=== PATIENT | male | born 1955 | race Caucasian/White ===

== ENCOUNTER 2017-08-26 17:04 | Inpatient (IN) | payer OTHER, MEDICARE ==
[~2017-08-26] VITALS: Ht 177.8 cm; Wt 58.2 kg
[2017-08-26 19:37] LABS: ABSOLUTE BASOPHIL COUNT 0 /CUMM (0.0-0.2); ABSOLUTE EOSINOPHIL COUNT 0 /CUMM (0.0-0.7); ABSOLUTE GRANULOCYTE CT 7.3 /CUMM (1.4-6.5); ABSOLUTE LYMPH COUNT 1.4 /CUMM (1.2-3.4); ABSOLUTE MONOCYTE COUNT 0.6 /CUMM (0.10-0.60); BASOPHIL % 0.2 % (0.0-2.0); EOSINOPHIL % 0.3 % (0-5); GRANULOCYTE % 78.7 % (42.2-75.2); HEMATOCRIT 42.5 % (42-52); MEAN CORPUSCULAR HGB 29.2 PG (27.0-31.0); MEAN CORPUSCULAR HGB CONC 31.6 G/DL (33.0-37.0); MEAN CORPUSCULAR VOLUME 92.3 FL (80.0-94.0); MEAN PLATELET VOLUME 9.1 FL (7.4-10.4); PLATELET COUNT 84 /CUMM (130-400); RED BLOOD CELL CT 4.61 /CUMM (4.70-6.10); WHITE BLOOD CELL COUNT 9.3 /CUMM (4.8-10.8)
--- NOTE | 2017-08-26 21:11 | ED GENERAL ADULT ---
History of Present Illness General Chief Complaint: Lower Extremity Problems Stated Complaint: PER DAUGHTER SWOLLEN LEGS Source: patient Exam Limitations: no limitations Vital Signs & Intake/Output Vital Signs & Intake/Output Vital Signs Date Time Temp Pulse Resp B/P B/P Pulse O2 O2 Flow FiO2 Mean Ox Delivery Rate 08/26 2241 97.0 72 16 146/87 96 Room Air 08/26 1906 96.8 85 20 143/87 95 Room Air Allergies Coded Allergies: NO KNOWN ALLERGIES (08/13/13) Triage Note: RECEIVED 62 YO MALE WITH DAUGHTER C/O PITTING LOWER EXTREMITY EDEMA X 2 TO 3 DAYS. ACCORDING TO DAUGHTER, PT TOOK EXTRA GABAPENTIN LAST SATURDAY AND SLEPT FOR 2 DAYS. PT DELEVOPED LOWER EXTREMITY EDEMA ON SATURDAY WHEN HE TOOK THE GABAPENTIN. SORES NOTED ON LOWER EXTREMITIES WITH PITTING EDEMA Triage Nurses Notes Reviewed? yes Onset: Abrupt Duration: day(s): Timing: recent history HPI: 08/26/17 9:32 PM 62-year-old male presents to the emergency department with daughter for significant swelling to his lower extremities over the past several days. He did take extra gabapentin accidentally. He is also a smoker and does admit to shortness of breath but denies chest pain. The onset of the symptoms were gradual, the duration has been several days, the severity is significant as his symptoms required him to come to the emergency department for care. He has a past medical history of COPD. Exam reveals significant edema to the lower extremities. He has poor air entry on exam. He is a poor historian and minimizes his complaints. Past History Travel History Traveled to [place] past 21 day No Medical History Any Pertinent Medical History? see below for history Neurological: NONE EENT: NONE Cardiovascular: NONE Respiratory: COPD Gastrointestinal: NONE Hepatic: NONE Renal: NONE Musculoskeletal: NONE Psychiatric: NONE Endocrine: NONE History of MRSA: No History of VRE: No History of CDIFF: No Surgical History Surgical History: non-contributory Psychosocial History Who do you live with Spouse Services at Home None What is your primary language Sudanese Tobacco Use: Current Daily Use Daily Tobacco Use Amount/Type: => 5 Cigarettes daily Family History Family History, If Any: FATHER (LUNG CANCER). MOTHER (POOR CIRCULATION, PVD). Hx Contributory? No Review of Systems Review of Systems Constitutional: Denies: fever. EENTM: Reports: no symptoms. Respiratory: Reports: short of breath. Cardiovascular: Denies: chest pain. GI: Reports: no symptoms. Genitourinary: Reports: no symptoms. Musculoskeletal: Reports: no symptoms. Skin: Reports: see HPI. Neurological/Psychological: Reports: no symptoms. Hematologic/Endocrine: Reports: no symptoms. Physical Exam Physical Exam General Appearance: alert, awake, anxious, mild distress Head: atraumatic, normal appearance Eyes: Bilateral: normal appearance, PERRL, EOMI. Ears, Nose, Throat: normal pharynx, normal ENT inspection Neck: normal inspection, supple, full range of motion Respiratory: normal breath sounds, decreased breath sounds, poor air entry Cardiovascular: regular rate/rhythm Peripheral Pulses: 4+ radial (R), 4+ radial (L) Gastrointestinal: soft, non-tender Back: normal range of motion Extremities: pedal edema Neurologic/Psych: awake, alert, oriented x 3 Skin: intact, ulcer LLE Core Measures ACS in differential dx? Yes No ASA d/t GIVEN CVA/TIA Diagnosis: No Sepsis Present: No Sepsis Focused Exam Completed? No Progress Differential Diagnoses I considered the following diagnoses in my evaluation of the patient: [Acute coronary syndrome, congestive heart failure, pulmonary embolism, adverse reaction to gabapentin] Plan of Care: Orders Procedure Date/time Status Heart Healthy Diet 08/27 B Active ED Holding Orders 08/26 2299 Active Admit to inpatient 08/26 2299 Active Vital Signs 08/26 2299 Active Code Status 08/26 2299 Active Add-on Test (ER Only) 08/26 2136 Active EKG 08/26 2136 Active TROPONIN LEVEL 08/26 1924 Complete D-DIMER 08/26 1924 Complete COMPREHENSIVE METABOLIC PANEL 08/26 1809 Complete CBC WITHOUT DIFFERENTIAL 08/26 1809 Complete B-TYPE NATRIURETIC PEP (BNP) 08/26 181 Complete Laboratory Tests 08/26/171924: Anion Gap 7, Estimated GFR > 60, BUN/Creatinine Ratio 15.7, Glucose 82, Calcium 7.8 L, Total Bilirubin 1.1, AST 28, ALT 223 H, Alkaline Phosphatase 69, Troponin I 0.06, Hlv-K-Ygfqhsgbylt Pept 2670 H, Total Protein 5.7 L, Albumin 3.1 L, Globulin 2.6, Albumin/Globulin Ratio 1.2, D-Dimer High Sensitivty 608 H , CBC w Diff NO MAN DIFF REQ, RBC 4.61 L, MCV 92.3, MCH 29.2, MCHC 31.6 L, RDW 17.0 H, MPV 9.1, Gran % 78.7 H, Lymphocytes % 14.9 L, Monocytes % 5.9, Eosinophils % 0.3, Basophils % 0.2, Absolute Granulocytes 7.3 H, Absolute Lymphocytes 1.4, Absolute Monocytes 0.6, Absolute Eosinophils 0, Absolute Basophils 0 Initial ED EKG: NSR, NEW T WAVE INVERSIONS V2-V3 Prior EKG: changed Departure Departure Disposition: STILL A PATIENT Condition: Stable Clinical Impression Primary Impression: Acute electrocardiogram changes Secondary Impressions: Anasarca, CHF (congestive heart failure), Hypocalcemia Referrals: Gardenia Freed APRN (PCP/Family) Departure Forms: Customer Survey General Discharge Information Admission Note Sp[facility]: [facility] Documentation of Exam: Documentation of any treatments & extenuating circumstances including Concerns Regarding Discharge (functional status, medication knowledge or non-compliance, living conditions, etc.) that warrant an admission rather than observation: [The patient has acute EKG changes and substantial lower extremity edema. He needs cardiology consultation, inpatient echocardiogram, CTA to rule out pulmonary embolism] Critical Care Note Critical Care Note Critical Care Time: non-applicable
--- NOTE | 2017-08-26 22:10 | RADIOLOGY REPORT ---
EXAMINATION: CHEST 2 VIEWS CLINICAL INFORMATION: Shortness of breath. COMPARISON: July 2013. TECHNIQUE: PA and lateral views of the chest were obtained. FINDINGS: The cardiac silhouette is not enlarged. The mediastinal and hilar contours are unremarkable. There are neither pleural effusions nor pneumothoraces. There is accentuation of streaky opacification within both lung apices, increased from prior exam. The lungs are hyperinflated. The osseous structures are unremarkable. IMPRESSION: Lung hyperinflation. Streaky biapical opacification likely business services sales representative of scarring, though an underlying infiltrate is difficult to exclude, particularly on the right. Recommendation is for a followup chest series to be obtained following treatment and/or resolution of symptoms to assure resolution of this appearance.
--- NOTE | 2017-08-27 00:09 | CT SCAN REPORT ---
EXAMINATION: CT ANGIOGRAM OF THE CHEST WITH AND WITHOUT CONTRAST (CT PULMONARY ANGIOGRAM FOR PE) CLINICAL INFORMATION: Shortness of breath, elevated d-dimer COMPARISON: Chest x-ray from earlier today TECHNIQUE: Prior to contrast administration, noncontrast localization images were obtained. Subsequently, multidetector volumetric imaging was performed from the thoracic inlet to below the diaphragms following the administration of 80 mL Omnipaque 350 intravenous contrast. No contrast reaction reported. Sagittal, coronal, and MIP oblique sagittal reformatted images were obtained on the CT workstation, uploaded to PACS, and reviewed. Total exam dose-length product 453.85 mGy-cm. FINDINGS: QUALITY OF STUDY/CONTRAST BOLUS: Satisfactory PULMONARY ARTERIES: No central or segmental pulmonary emboli. The main pulmonary artery is mildly prominent, measuring 3.1 cm in diameter. THORACIC AORTA: Grossly unremarkable, though suboptimally evaluated given the phase of postcontrast imaging LUNG: There is moderately extensive emphysema with upper lobe predominance, including multiple bullae at the lung apices. There are regions of subpleural opacity at the lung apices which are most suggestive of scarring in the setting. No additional consolidation is seen bilaterally. There is a nodule along the right minor fissure measuring 8 x 4 mm on image 333/601, suggestive of a lymph node. PLEURA: No pleural effusion or pneumothorax. MEDIASTINUM: The visualized thyroid gland appears diminutive. No mediastinal lymphadenopathy is seen. Cardiac size is within normal limits; no pericardial effusion. The interventricular septum appears somewhat flattened, with prominent size of the right ventricular cavity. CHEST WALL/AXILLA: No axillary or internal mammary lymphadenopathy. OSSEOUS STRUCTURES: There is partial loss of height in multiple vertebral bodies including T4, T5, T7, L1, and L3 which is age-indeterminate. UPPER ABDOMEN: There is some reflux of contrast into the hepatic veins suggesting elevated right heart pressures. IMPRESSION: 1. No pulmonary embolus identified. 2. Findings suggestive of elevated right heart pressures. Prominent main pulmonary artery may reflect pulmonary hypertension. 3. Moderately extensive emphysema with upper lobe predominance. 4. Regions of subpleural opacity at the lung apices, suggestive of scarring. However, in the absence of prior CT exams for comparison, follow-up CT in 3-6 months is advised to exclude superimposed developing mass. VTE: negative
--- NOTE | 2017-08-27 00:10 | History & Physical ---
Becky UJLIO,Eileen 08/27/17 0009: General Information and HPI MD Statement: I have seen and personally examined SISSY PERALES and documented this H&P. The patient is a 62 year old M who presented with a patient stated chief complaint of failure to thrive. . Source of Information: patient, family, old records Exam Limitations: no limitations History of Present Illness: Mr Perales is a 62 year old gentleman with a PMH of COPD (not on home O2), BPH, Depression, chronic back painwho was brought in by daughter after it appears the patient has clinically deteriorated over the last 72 hours. The patient was in his normal state of health until Saturday08/23/2017, When he mistakenly took some pills of gabapentin. He is unsure how many. He was previously prescribed gabapentin (however was instructed to stop taking them) these medications were supposed to be discarded but never were. Daughter of the patient reported that the patient was somnolent and slept during the entire course of Saturday into Saturday. She states that patient has remained somnolent and had to be carried into bed on Saturday. It was recommended that the patient should be brought into the emergency department on Saturday for additional workup however patient refused. On 08/26/2017 the patient was scheduled to have a routine visit with primary care physician Dr. Gardenia Freed however missed this appointment. During the time of our clinical interation, the patient reports that as he was attempting to use the restroom on Saturday he suffered a mechanical fall and did have some head trauma. He however denies any LOC. Patient also endorses worsening dyspnea on exertion. He endorses paroxysmal nocturnal dyspnea and requires 5 pillows to sleep at night. He also endorses a cough which is increased over the last 72 hours. Cough is been productive of yellow phlegm. He reports an increase in the production and worsening of his pulmonay symptoms. Patient has been due for colonoscopy however has not followed up. . Allergies/Medications Allergies: Coded Allergies: NO KNOWN ALLERGIES (08/13/13) Home Med list Alprazolam (Xanax) 2 MG TABLET 1 TAB PO ONCE MOOD (Reported) Dextroamphetamine/Amphetamine (Dextroamp-Amphet ER 30 MG Cap) 30 MG CAP.ER.24H 1 CAP PO DAILY Mood Disorder (Reported) Oxycodone HCl (Oxycontin) 60 MG TAB.ER.12H 1 TAB PO BID Chronic Pain ( Reported) Oxycodone HCl 30 MG TABLET 1 TAB PO TIDPRN Chronic Pain (Reported) Sertraline HCl 100 MG TABLET 1 TAB PO DAILY MOOD DISORDER (Reported) Tamsulosin HCl (Flomax) 0.4 MG CAP.ER.24H 1 CAP PO DAILY prostate (Reported) Tiotropium [place] (Spiriva) 18 MCG CAP.W.DEV 1 CAP INH DAILY COPD (Reported) Trazodone HCl 50 MG TABLET 1 TAB PO QPM PRN SLEEP (Reported) Compliance With Home Meds: UNKNOWN Past History Travel History Traveled to [place] past 21 day No Medical History Neurological: NONE EENT: NONE Cardiovascular: NONE Respiratory: COPD Gastrointestinal: NONE Hepatic: NONE Renal: NONE Musculoskeletal: NONE Psychiatric: NONE Endocrine: NONE History of MRSA: No History of VRE: No History of CDIFF: No Surgical History Surgical History: non-contributory Past Family/Social History Family History Relations & Conditions if any FATHER (LUNG CANCER). MOTHER (POOR CIRCULATION, PVD). Psychosocial History Where do you live? Home Who Do You Live With? spouse, child Services at Home: None Primary Language: Polish Smoking Status: Current Everyday Smoker (Over 30 Pack year history) ETOH Use: occasional use Illicit Drug Use: denies illicit drug use Living Will? no Functional Ability ADLs Independent: dressing, eating, toileting, bathing. Ambulation: independent IADLs Independent: shopping, housework, finances, food prep, telephone, transportation , medication admin. Review of Systems Review of Systems Constitutional: Reports: see HPI. Denies: chills, diaphoresis, fever, malaise, weakness. Respiratory: Reports: cough, orthopnea, short of breath, sputum production. Denies: hemoptysis, stridor. GI: Denies: abdominal pain, bloating, constipation, diarrhea, distention, bowel incontinence, melena, nausea, bloody stool. Genitourinary: Denies: discharge, dysuria, frequency, hematuria. Musculoskeletal: Reports: back pain. Exam & Diagnostic Data Last 24 Hrs of Vital Signs/I&O Vital Signs Date Time Temp Pulse Resp B/P B/P Pulse O2 O2 Flow FiO2 Mean Ox Delivery Rate 08/27 0205 97.8 86 14 157/91 97 Room Air 08/26 2241 97.0 72 16 146/87 96 Room Air 08/26 1906 96.8 85 20 143/87 95 Room Air Intake & Output 08/27 0800 08/27 0000 08/26 1600 Intake Total Output Total 400 Balance -400 Output, Urine 400 Patient 61.235 kg Weight Weight Estimated Measurement Method Physical Exam General Appearance Alert, Oriented X3, Cooperative Skin Temp/Moisture Exam: Warm/Dry Sepsis Skin Exam (color): Normal for Ethnicity HEENT Atraumatic, PERRLA, EOMI, Mucous Membr. moist/pink Neck Supple Lymphatic Cervical nl Cardiovascular Regular Rate, Normal S1, Normal S2 Lungs decreased Breathsounds. Mild Wheezing noted. R>L Abdomen Normal Bowel Sounds, Soft, No Tenderness Neurological Normal Speech, Sensation Intact, Cranial Nerves 3-12 NL, Strength Upper EXT 5/5 Strenght Lower Ext 3/5 Extremities No Clubbing Vascular Normal Pulses Sepsis Peripheral Pulse Location: Posterior Tibialis Last 24 Hrs of Labs/Ryan: Laboratory Tests 08/27/17 0208: Urine Opiates Screen 1078.00, Methadone Screen < 40, Barbiturate Screen < 60, Ur Phencyclidine Scrn < 6.00, Amphetamines Screen < 100, U Benzodiazepines Scrn > 800 H, Urine Cocaine Screen < 50, Urine Cannabis Screen < 5.00, Urine Color YEL , Urine Clarity CLEAR, Urine pH 7.0, Ur Specific [place] 1.010, Urine Protein NEG, Urine Ketones NEG, Urine Nitrite NEG, Urine Bilirubin NEG, Urine Urobilinogen 1.0, Ur Leukocyte Esterase NEG, Ur Microscopic EXAM NOT REQUIRED, Urine Hemoglobin NEG, Urine Glucose NEG 08/27/17 0123: Troponin I 0.07 08/26/17 1925: Anion Gap 7, Estimated GFR > 60, BUN/Creatinine Ratio 15.7, Glucose 82, Calcium 7.8 L, Total Bilirubin 1.1, AST 28, ALT 223 H, Alkaline Phosphatase 69, Troponin I 0.06, Lvw-O-Rodpylkodxu Pept 2670 H, Total Protein 5.7 L, Albumin 3.1 L, Globulin 2.6, Albumin/Globulin Ratio 1.2, D-Dimer High Sensitivty 608 H , CBC w Diff NO MAN DIFF REQ, RBC 4.61 L, MCV 92.3, MCH 29.2, MCHC 31.6 L, RDW 17.0 H, MPV 9.1, Gran % 78.7 H, Lymphocytes % 14.9 L, Monocytes % 5.9, Eosinophils % 0.3, Basophils % 0.2, Absolute Granulocytes 7.3 H, Absolute Lymphocytes 1.4, Absolute Monocytes 0.6, Absolute Eosinophils 0, Absolute Basophils 0 Diagnostic Data EKG Results T wave inversions, V2, V3, V4. Rate 78. QTC 456. SC 220. First deg AV Block. CXR Results IMPRESSION: Lung hyperinflation. Streaky biapical opacification likely patient representative of scarring, though an underlying infiltrate is difficult to exclude, particularly on the right. Recommendation is for a followup chest series to be obtained following treatment and/or resolution of symptoms to assure resolution of this appearance. Other Results SERVICE DATE: 08/26/17 EXAM TYPE: CAT - CTA CHEST-PULMONARY EMBOLISM IMPRESSION: 1. No pulmonary embolus identified. 2. Findings suggestive of elevated right heart pressures. Prominent main pulmonary artery may reflect pulmonary hypertension. 3. Moderately extensive emphysema with upper lobe predominance. 4. Regions of subpleural opacity at the lung apices, suggestive of scarring. However, in the absence of prior CT exams for comparison, follow-up CT in 3-6 months is advised to exclude superimposed developing mass. VTE: negative Assessment/Plan Assessment: Mr Perales is a 62 year old gentleman with a PMH of COPD (not on home O2), BPH, Depression, chronic back painwho was brought in by daughter after it appears the patient has clinically deteriorated over the last 72 hours. His symptoms seem to have been caused by COPD exacerbation and possibly component of CHF exacerbation. He continues to smoke and will likely benefit from smoking cessation therapy. Below is his problem list and management. Problem list. #Altered mentation due to decreased PO intake vs medication side effect. #COPD exacerbation. #EKG Changes #Elevated ProBNP #Transaminitis. #Idiopathic Thrombocytopenia #History of nicotine dependence. #History of depression and mood disorder. #History of low testosterone. #Nutritional deficiency. #EKG Changes. Rule out ACS. Serial EKGs and troponin. Obtain echocardiogram in a.m. Cardiology consultation in a.m. Obtain thyroid studies. Conitinue Aspirin. #COPD exacerbation. Continue steroids IV 40 mg every 8. TRC nebulizer. Continue Spiriva. Obtain a pulmonary consultation with Dr. Duron in the a.m. Incentive spirometer. Mucinex and Tessalon Perles as needed. Continue Azithromycing for antiinflamatory infection and cover atypical organisms. #CHF exacerbation. Lasix IV 20 mg was given in the emergency department Monitor daily weights. Monitor intake and output. Continue Lasix 20 mg PO in a.m. Obtain cardiology consultation with Dr. Felix in a.m. #History of nicotine dependence. Provide Smoking cessation counseling. Nicotine patch. Will need age-appropriate cancer screening as an outpatient. #Idiopathic thrombocytopenia. Check coag studies in a.m. Repeat CBC in AM. Hold pharmacologic nticoagulation for now. History of depression and mood disorders. Continue home medications. Nutritional deficiencies. Patient does look slightly malnutrition and may benefit from a nutrition consult in a.m. #History of chronic pain Continue home medications. PT and OT consultation in am. Consider nutrition consult in a.m. *Please reconcile home medications in a.m. Patient was unsure of his complete medication list.* Heart healthy diet. Limit sodium. DVT prophylaxis with ALPS (due to thrombocytopenia) . Patient is a full code. As Ranked By This Provider Problem List: 1. CHF (congestive heart failure) 2. Chronic back pain 3. Depression 4. COPD exacerbation Core Measures/Misc (03/31) Cerebrovascular Accident CVA/TIA Diagnosis: Gissell Castelan MD, [facility] 08/27/17 0021: Attending MD Review Statement Attending Statement Attending MD Statement: examined this patient, discuss w/resident/PA/NAVAL GUNFIRE SPOTTER, agreed w/resident/PA/NAVAL GUNFIRE SPOTTER, discussed with family, reviewed images, amended to note Attending Assessment/Plan: 62 yo M smoker with h/o COPD, depression, BPH, chronic back pain on opiates, low testosterone, neuropathy, COPD induced cachexia, is here for evaluation of bilateral lower extremity edema and general decline in clinical condition. Patient was previously on gabapentin for neuropathy but this was switched to ? trazodone per patient's . However on Saturday, patient took few pills of gabapentin and since then he has been somnolent/ sleepy. He refused to come to the ER for evaluation over the weekend. He reports a mechanical fall at home that resulted in mild head strike but no LOC. He reports worsening dyspnea on exertion with orthopnea (uses 5 pillows at night ), PND and increasing cough productive of initially white and now yellow phlegm, especially worse over past 3 days. He denies chest pain, palpitations or lightheadedness. History is very limited as patient's daughter is not aware of his medical problems and was giving us some information although things were not clear. Med list was not available. Patient is on hydrocortisone (per claim history) and it is unclear why. He reports weight loss though cannot quantify. Vitals stable except for elevated BP. Examination suggestive of markedly reduced air entry and expiratory wheezes on exam, bilateral lower extremity 3+ pitting edema, no evidence of JVD or chest crackles. Easy bruising++. Labs: no leukocytosis, Plt 84, D-dimer 608, bicarb 35, Ca 7.8, albumin 3.1, corrected calcium 8.5, ALT 223, trop neg, proBNP 2670. UA clear. Utox positive for opiates and benzos. CXR: lung hyperinflation. Streaky biapical opacification likely scarring, though underlying infiltrate cannot be excluded. CTA chest: no PE. Elevated right heart pressures, prominent main pulmonary artery, moderately extensive emphysema, subpleural opacity at lung apices scarring. EKG: sinus rhythm, TWI in V2-4, first degree AV block, Qtc 456. Echo (2013): EF > 65%. Assessment and plan: 1. Lethargy, weakness likely drug induced (?gabapentin, opiates) 2. Acute EKG changes 3. Acute COPD exacerbation 4. Ongoing smoking 5. Bilateral lower extremity edema, elevated proBNP, rule out CHF 6. Pulmonary hypertension 7. Thrombocytopenia of unclear etiology - Admit to Telemetry - Monitor for arrhythmias - Serial EKG and troponin to rule out ACS - Obtain echo to assess LV function and pulmonary pressures - Continue aspirin - Check lipid panel, TSH, free T4, HbA1c - Cardio consult Dr. Felix - IV lasix 20 mg once then followed 20 daily in AM - TR nebs - Sputum cultures - IV steroids 125 mg followed by 40 Q8 - IV azithro for 5 days - Pulm consult Dr. Duron - Smoking cessation counseling, nicotine patch - Check peripheral smear, PT/ INR - He needs to follow up with PCP for colonoscopy. - Please confirm med list in AM and obtain more collateral information about this patient - Nutrition consult - Local wound care to bilateral extremities - PT eval DVT ppx Alps (thrombocytopenia). Full code.
--- NOTE | 2017-08-27 00:22 | Admission Certification ---
Admission Certification Certification Statement - As attending physician, I certify that at the time of - admission, based on clinical presentation, severity of - symptoms, need for further diagnostic testing and - therapeutic interventions, and risk of adverse outcomes - without in-hospital treatment, in my clinical assessment, - this patient requires an acute hospital stay for a minimum - of two nights or longer. I have also considered psychsocial - factors such as support system, advanced age, financial - issues, cognitive issues, and failed out-patient treatments, - past re-admission history, safety of patient, and lack of - compliance as applicable. Specific rationale supporting this admission is: Acute COPD exacerbation, Pulmonary hypertension, lower extremity edema, concerning for CHF.
[2017-08-27] MEDS ORDERED: TRAZODONE HCL50 M1 PO (02:10)
[2017-08-27] MEDS ORDERED: XANAX2 M1 PO (02:11)
[2017-08-27] MEDS ORDERED: SERTRALINE HCL100 MG PO (02:11)
[2017-08-27] MEDS ORDERED: FLOMAX0.4 M1 PO (03:18)
[2017-08-27] MEDS ORDERED: OXYCONTIN60 M1 PO (03:19)
[2017-08-27] MEDS ORDERED: SPIRIVA18 MCG INH (03:20)
[2017-08-27] MEDS ORDERED: OXYCODONE HCL30 M1 PO (03:20)
[2017-08-27] MEDS ORDERED: DEXTROAMP-AMPHE30 M1 PO (03:21)
[2017-08-27 08:27] LABS: PTT 31 SEC (25-37)
[2017-08-27 08:45] LABS: ABSOLUTE BASOPHIL COUNT 0 /CUMM (0.0-0.2); ABSOLUTE EOSINOPHIL COUNT 0 /CUMM (0.0-0.7); ABSOLUTE GRANULOCYTE CT 6.4 /CUMM (1.4-6.5); ABSOLUTE LYMPH COUNT 0.5 /CUMM (1.2-3.4); ABSOLUTE MONOCYTE COUNT 0.1 /CUMM (0.10-0.60); BASOPHIL % 0 % (0.0-2.0); EOSINOPHIL % 0 % (0-5); GRANULOCYTE % 92.1 % (42.2-75.2); HEMATOCRIT 45.4 % (42-52); MEAN CORPUSCULAR HGB 29.4 PG (27.0-31.0); MEAN CORPUSCULAR VOLUME 92.1 FL (80.0-94.0); MEAN PLATELET VOLUME 9.8 FL (7.4-10.4); PLATELET COUNT 81 /CUMM (130-400); RBC DISTRIBUTION WIDTH 16.6 % (11.5-14.5); RED BLOOD CELL CT 4.93 /CUMM (4.70-6.10)
--- NOTE | 2017-08-27 09:47 | PN- Housestaff ---
Kiko JULIO,[facility] 08/27/17 0946: Subjective Follow-up For: CHF Exacerbation COPD Exacerbation Subjective: Patient more awake per the family. Denies any chest pain, palpitation, fever/ chills. Review of Systems Constitutional: Reports: no symptoms. Cardiovascular: Denies: chest pain, palpitations. Respiratory: Reports: cough, orthopnea, short of breath, sputum production. Gastrointestinal: Reports: no symptoms. Genitourinary: Reports: no symptoms. Objective Last 24 Hrs of Vital Signs/I&O Vital Signs Date Time Temp Pulse Resp B/P B/P Pulse O2 O2 Flow FiO2 Mean Ox Delivery Rate 08/27 1804 98.0 78 20 136/70 91 08/27 1531 97.5 84 18 124/81 93 Room Air Room Air 08/27 0949 97.2 77 20 154/89 08/27 0809 97.2 77 20 154/89 95 Room Air 08/27 0619 97.5 79 18 170/99 93 Room Air 08/27 0205 97.8 86 14 157/91 97 Room Air 08/26 2241 97.0 72 16 146/87 96 Room Air Intake & Output 08/27 1600 08/27 0800 08/27 0000 Intake Total Output Total 700 Balance -700 Output, Urine 700 Patient 135 lb 135 lb Weight Weight Reported by Patient Estimated Measurement Method Physical Exam General Appearance: Alert, Cooperative, No Acute Distress Skin: No Rashes, No Breakdown Cardiovascular: Regular Rate, Normal S1, Normal S2 Lungs: Normal Air Movement Extremities: +2 pitting edema bilaterally Current Medications: Current Medications Sig/Cristina Start time Last Medication Dose Route Stop Time Status Admin Alprazolam 0 .STK-MED ONE 08/27 1532 DC PO Alprazolam 0.5 MG DAILY PRN 08/27 1445 AC 08/27 PO 09/03 1444 1531 Alprazolam 2 MG ONCE ONE 08/27 0215 DC 08/27 PO 08/27 0216 0239 Aspirin 0 .STK-MED ONE 08/26 2327 DC PO Aspirin 325 MG ONCE ONE 08/26 2315 DC 08/26 PO 08/26 2316 2345 Azithromycin 500 MG DAILY 08/28 1000 AC PO Azithromycin 500 MG DAILY 08/27 1000 CAN Dextrose/Water 250 ML IV Azithromycin 500 MG DAILY 08/27 1000 DC 08/27 Dextrose/Water 250 ML IV 0949 Enoxaparin Sodium 40 MG DAILY 08/27 1000 CAN SC Furosemide 0 .STK-MED ONE 08/27 1459 DC IV Furosemide 20 MG ONCE ONE 08/27 1445 DC 08/27 IV 08/27 1446 1458 Furosemide 0 .STK-MED ONE 08/27 0205 DC IV Furosemide 20 MG ONCE ONE 08/27 0115 DC 08/27 IV 08/27 0116 0205 Guaifenesin 600 MG Q12 PRN 08/27 0330 AC PO Influenza Virus 0.5 ML ONCE ONE 08/27 1845 DC Vaccine IM 08/27 1846 Methylprednisolone 40 MG Q12 08/27 1000 DC IV Methylprednisolone 40 MG Q8 08/27 0600 AC 08/27 IV 1425 Methylprednisolone 0 .STK-MED ONE 08/27 0112 DC .ROUTE Methylprednisolone 125 MG ONCE ONE 08/27 0100 DC 08/27 IV 08/27 0101 0129 Multivitamins 1 TAB DAILY 08/27 1000 AC 08/27 PO 0949 Nicotine 0 .STK-MED ONE 08/26 2238 DC TOP Nicotine 21 MG ONCE ONE 08/26 2230 DC 08/26 TOP 08/26 2231 2240 Oxycodone HCl 60 MG Q12 08/27 1000 AC 08/27 PO 0949 Oxycodone HCl 0 .STK-MED ONE 08/27 0947 DC PO Oxycodone HCl 30 MG TIDPRN PRN 08/27 0330 AC PO Sertraline HCl 100 MG DAILY 08/27 1000 AC 08/27 PO 0949 Tamsulosin HCl 0.4 MG DAILY 08/27 1000 AC 08/27 PO 0949 Tiotropium [place] 1 PUF DAILY 08/27 1000 AC 08/27 INH 0949 Trazodone HCl 50 MG QPM PRN 08/27 0215 AC 08/27 PO 0239 Last 24 Hrs of Lab/Ryan Results Last 24 Hrs of Labs/Mics: Laboratory Tests 08/27/17 0648: Anion Gap 6, Estimated GFR > 60, BUN/Creatinine Ratio 21.7, Total Bilirubin 1.1, Direct Bilirubin 0.4, AST 32, ALT 186 H, Alkaline Phosphatase 75, Troponin I 0.06, Total Protein 5.6 L, Albumin 2.9 L, PT 14.0 H, INR 1.34 H, APTT 31, CBC w Diff MAN DIFF ORDERED, RBC 4.93, MCV 92.1, MCH 29.4, MCHC 32.0 L, RDW 16.6 H, MPV 9.8, Gran % 92.1 H, Lymphocytes % 6.7 L, Monocytes % 1.2 L, Eosinophils % 0, Basophils % 0, Absolute Granulocytes 6.4, Segmented Neutrophils 89 H, Band Neutrophils 1, Absolute Lymphocytes 0.5 L, Lymphocytes 9 L, Monocytes 1 L, Absolute Monocytes 0.1, Absolute Eosinophils 0, Absolute Basophils 0, Platelet Estimate , Anisocytosis 1+ 08/27/17 0208: Urine Opiates Screen 1078.00, Methadone Screen < 40, Barbiturate Screen < 60, Ur Phencyclidine Scrn < 6.00, Amphetamines Screen < 100, U Benzodiazepines Scrn > 800 H, Urine Cocaine Screen < 50, Urine Cannabis Screen < 5.00, Urine Color YEL , Urine Clarity CLEAR, Urine pH 7.0, Ur Specific [place] 1.010, Urine Protein NEG, Urine Ketones NEG, Urine Nitrite NEG, Urine Bilirubin NEG, Urine Urobilinogen 1.0, Ur Leukocyte Esterase NEG, Ur Microscopic EXAM NOT REQUIRED, Urine Hemoglobin NEG, Urine Glucose NEG 08/27/17 0123: Troponin I 0.07 Microbiology 08/27 1643 NASOPHARYN: Influenza Virus A & B Rapid Smear - COMP 08/27 814 LOWER RESP: Respiratory Culture - COLB 08/27 814 LOWER RESP: Gram Stain - COLB Assessment/Plan Assessment: Mr Shen is a 62 year old gentleman with a PMH of COPD (not on home O2), BPH, Depression, chronic back painwho was brought in by daughter after it appears the patient has clinically deteriorated over the last 72 hours. A/P; SOB likely multifactorial from CHF and COPD exacerbation. #COPD exacerbation. Continue steroids IV 40 mg every 8. [facility] nebulizer. Continue Spiriva. Await pulmonology recommendations. Incentive spirometer. Mucinex and Tessalon Perles as needed. Continue Azithromycing. #CHF exacerbation. Lasix IV 20 mg was given in the emergency department. Will give another dose today and reaccess tomorrow morning for further need of diuresis. Monitor daily weights. Strick intake and output. Await cardiology recommendations. #History of nicotine dependence. Provide Smoking cessation counseling. Nicotine patch. Will need age-appropriate cancer screening as an outpatient. #Idiopathic thrombocytopenia. Coags WNL. Repeat CBC in AM. Hold pharmacologic nticoagulation for now. Spoke with PCP who denies any previous episodes of thrombocytopenia and any workup for it in the past. Will check peripheral smear. Haem/Onc consult; await recommendations. History of depression and mood disorders. Continue home medications. Nutritional deficiencies. Patient does look slightly malnutrition and may benefit from a nutrition consult in a.m. #History of chronic pain Continue home medications. PT and OT consultation, recommends discharging home. DVT prophylaxis with ALPS (due to thrombocytopenia) . Patient is a full code. Problem List: 1. CHF (congestive heart failure) 2. COPD exacerbation Pain Ratin Pain Location: Back Pain Goal: Remain pain free Pain Plan: Pain pathway Tomorrow's Labs & Rationales: BEP(on Lasix) Niharika Donahue MD 08/27/17 1442: Attending MD Review Statement Attending Statement Attending MD Statement: examined this patient, discuss w/resident/PA/YEAST CULTURE DEVELOPER, agreed w/resident/PA/YEAST CULTURE DEVELOPER, reviewed EMR data (avail), discussed with nursing, reviewed images Attending Assessment/Plan: 62-year-old male past medical history of COPD, BPH, emphysema who came in last night and we are empirically treating him both for a COPD exacerbation with IV steroids and a possible CHF exacerbation with IV Lasix. We need to get more collateral info from the patient, Dr. Felix is scheduled to see him from cardiology. He has severe emphysema on his CT scan and will continue the steroids and do the Lasixdaily as needed. He is Lasix selene and doesn't take it chronically. He has this new thrombocytopenia of unclear etiology and the risk management internship spoke to the PCP and he doesn't have a history of having this before. We will ask the lab to do peripheral smear, his coags are normal not reflective of DIC and will likely need hematology to help us get to the bottom of this thrombocytopenia. There is no obvious medication that could cause it. He is chronically opiate dependent and would continue his OxyContin. He also take benzos and will give him that when necessary watching his respiratory status closely.
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
--- NOTE | 2017-08-27 18:03 | Event Note ---
Event Note Event Note: S: Paged stating patient's daughter concerned and thinks patient needs a head CT B: Patient is a 62 y/o male with PMH Patient seen and examined. Neurologically intact.
[2017-08-27 18:04] VITALS: BP 136/70
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
--- NOTE | 2017-08-27 21:05 | CT SCAN REPORT ---
EXAMINATION: CT HEAD WITHOUT CONTRAST CLINICAL INFORMATION: 62-year-old man with recent fall and confusion. COMPARISON: 04/19/2017 brain MRI TECHNIQUE: Contiguous axial imaging was performed from the skull base to vertex without intravenous administration of contrast. DLP: 617 mGy-cm FINDINGS: Chronic changes related to left frontal craniotomy and cranioplasty are again visible with cystic encephalomalacia and gliosis in the left middle frontal gyrus. No intracranial mass, hemorrhage, midline shift, or extra-axial collection is appreciated. The ventricles and sulcal spaces are age appropriate. The paranasal sinuses are well aerated. IMPRESSION: No acute intracranial pathology.
[2017-08-27 22:12] VITALS: BP 124/70
[2017-08-28 04:34] LABS: ABSOLUTE BASOPHIL COUNT 0 /CUMM (0.0-0.2); ABSOLUTE EOSINOPHIL COUNT 0 /CUMM (0.0-0.7); ABSOLUTE GRANULOCYTE CT 11.4 /CUMM (1.4-6.5); ABSOLUTE LYMPH COUNT 0.7 /CUMM (1.2-3.4); ABSOLUTE MONOCYTE COUNT 0.3 /CUMM (0.10-0.60); BASOPHIL % 0.1 % (0.0-2.0); EOSINOPHIL % 0 % (0-5); HEMATOCRIT 42.5 % (42-52); MEAN CORPUSCULAR HGB 29.2 PG (27.0-31.0); MEAN CORPUSCULAR HGB CONC 32.5 G/DL (33.0-37.0); MEAN CORPUSCULAR VOLUME 89.7 FL (80.0-94.0); MEAN PLATELET VOLUME 9.3 FL (7.4-10.4); PLATELET COUNT 101 /CUMM (130-400); RBC DISTRIBUTION WIDTH 16.5 % (11.5-14.5); RED BLOOD CELL CT 4.74 /CUMM (4.70-6.10)
[2017-08-28 05:35] LABS: GRANULOCYTE % 92.3 % (42.2-75.2)
[2017-08-28 06:43] VITALS: BP 140/82
--- NOTE | 2017-08-28 07:11 | Cons- Hematology ---
General Information and HPI Consulting Request Date of Consult: 08/28/17 Requested By: Rowan JULIO,Niharika Corado History of Present Illness: 62-year-old man brought to the emergency room with increasing lethargy found to be thrombocytopenic. Prior to admission, the patient ingested gabapentin. He denies increased bleeding or bruising. Allergies/Medications Allergies: Coded Allergies: NO KNOWN ALLERGIES (08/13/13) Home Med List: Alprazolam (Xanax) 2 MG TABLET 1 TAB PO ONCE MOOD (Reported) Dextroamphetamine/Amphetamine (Dextroamp-Amphet ER 30 MG Cap) 30 MG CAP.ER.24H 1 CAP PO DAILY Mood Disorder (Reported) Oxycodone HCl (Oxycontin) 60 MG TAB.ER.12H 1 TAB PO BID Chronic Pain ( Reported) Oxycodone HCl 30 MG TABLET 1 TAB PO TIDPRN Chronic Pain (Reported) Sertraline HCl 100 MG TABLET 1 TAB PO DAILY MOOD DISORDER (Reported) Tamsulosin HCl (Flomax) 0.4 MG CAP.ER.24H 1 CAP PO DAILY prostate (Reported) Tiotropium [place] (Spiriva) 18 MCG CAP.W.DEV 1 CAP INH DAILY COPD (Reported) Trazodone HCl 50 MG TABLET 1 TAB PO QPM PRN SLEEP (Reported) Current Medications: Current Medications Sig/Cristina Start time Last Medication Dose Route Stop Time Status Admin Albuterol Sulfate 3 ML BID 08/27 2200 AC INH Alprazolam 0 .STK-MED ONE 08/27 1532 DC PO Alprazolam 0.5 MG DAILY PRN 08/27 1445 AC 08/27 PO 09/03 1444 2241 Azithromycin 500 MG DAILY 08/28 1000 AC PO Azithromycin 500 MG DAILY 08/27 1000 CAN Dextrose/Water 250 ML IV Azithromycin 500 MG DAILY 08/27 1000 DC 08/27 Dextrose/Water 250 ML IV 0949 Enoxaparin Sodium 40 MG DAILY 08/27 1000 CAN SC Furosemide 0 .STK-MED ONE 08/27 1459 DC IV Furosemide 20 MG ONCE ONE 08/27 1445 DC 08/27 IV 08/27 1446 1458 Guaifenesin 600 MG Q12 PRN 08/27 0330 AC PO Influenza Virus 0.5 ML ONCE ONE 08/27 1845 DC Vaccine IM 08/27 1846 Methylprednisolone 40 MG Q12 08/28 1000 AC IV Methylprednisolone 40 MG Q8 08/27 0600 DC 08/27 IV 2131 Multivitamins 1 TAB DAILY 08/27 1000 AC 08/27 PO 0949 Oxycodone HCl 60 MG Q12 08/27 1000 AC 08/27 PO 2132 Oxycodone HCl 0 .STK-MED ONE 08/27 0947 DC PO Oxycodone HCl 30 MG TIDPRN PRN 08/27 0330 AC PO Potassium Chloride 10 MEQ ONCE ONE 08/28 0330 CAN IV 08/28 0331 Potassium Chloride 40 MEQ ONCE ONE 08/28 0330 DC 08/28 PO 08/28 0331 0356 Sertraline HCl 100 MG DAILY 08/27 1000 AC 08/27 PO 0949 Tamsulosin HCl 0.4 MG DAILY 08/27 1000 AC 08/27 PO 0949 Tiotropium [place] 1 PUF DAILY 08/27 1000 DC 08/27 INH 0949 Trazodone HCl 50 MG QPM PRN 08/27 0215 AC 08/28 PO 0412 Review of Systems Review of Systems: Patient denies headaches or dizziness. Patient has chronic shortness of breath not associated with hemoptysis or chest pain. Patient denied nausea vomiting abdominal pain or blood loss. 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 MOTHER (POOR CIRCULATION, PVD). Psychosocial History Where Do You Live? Home Who Do You Live With? spouse, child Services at Home: None Primary Language: Kenyan Smoking Status: Current Everyday Smoker (Over 30 Pack year history) ETOH Use: occasional use Illicit Drug Use: denies illicit drug use Living Will? no Functional Ability ADLs Independent: dressing, eating, toileting, bathing. Ambulation: independent IADLs Independent: shopping, housework, finances, food prep, telephone, transportation , medication admin. Exam & Diagnostic Data Vital Signs and I&O Vital Signs Date Time Temp Pulse Resp B/P B/P Pulse O2 O2 Flow FiO2 Mean Ox Delivery Rate 08/28 0543 98.1 92 20 140/82 92 Room Air 08/28 0000 91 Nasal 2.5L Cannula 08/27 2212 98.0 84 18 124/70 94 08/27 2150 Nasal 2.0L Cannula 08/27 1804 98.0 78 20 136/70 91 08/27 1531 97.5 84 18 124/81 93 Room Air Room Air 08/27 0949 97.2 77 20 154/89 08/27 0809 97.2 77 20 154/89 95 Room Air Intake & Output 08/28 0800 08/28 0000 08/27 1600 Intake Total 110 320 Output Total 900 600 Balance -790 -280 Intake, IV 10 Intake, Oral 100 320 Output, Urine 900 600 Patient 133 lb 135 lb Weight Weight Bed scale Reported by Patient Measurement Method Gen.: in NAD ENT: Sclera anicteric Chest: Normal respiratory effort, decreased breath sounds Cor: RRR, no extra sounds Abdomen: Soft, bowel sounds present, no tenderness, no rebound Extremities: Without clubbing, cyanosis, or asymmetric edema Neurology: Alert and oriented 3, no gross deficit Skin: No petechiae Last 48 Hours of Lab Results: Laboratory Tests 08/28 08/28 08/27 0600 0407 2120 Chemistry Sodium (137 - 145 mmol/L) Cancelled 137 131 L Potassium (3.5 - 5.1 mmol/L) Cancelled 3.4 L 3.6 Chloride (98 - 107 mmol/L) Cancelled 98 91 L Carbon Dioxide (22 - 30 mmol/L) Cancelled 32 H 34 H Anion Gap (5 - 16) Cancelled 7 6 BUN (9 - 20 mg/dL) Cancelled 20 21 H Creatinine (0.7 - 1.2 mg/dL) Cancelled 0.6 L 0.8 Estimated GFR (>60 ml/min) > 60 > 60 BUN/Creatinine Ratio (7 - 25 %) Cancelled 33.3 H 26.3 H Hematology CBC w Diff NO MAN DIFF REQ WBC (4.8 - 10.8 /CUMM) 12.4 H RBC (4.70 - 6.10 /CUMM) 4.74 Hgb (14.0 - 18.0 G/DL) 13.9 L Hct (42 - 52 %) 42.5 MCV (80.0 - 94.0 FL) 89.7 MCH (27.0 - 31.0 PG) 29.2 MCHC (33.0 - 37.0 G/DL) 32.5 L RDW (11.5 - 14.5 %) 16.5 H Plt Count (130 - 400 /CUMM) 101 L MPV (7.4 - 10.4 FL) 9.3 Gran % (42.2 - 75.2 %) 92.3 H Lymphocytes % (20.5 - 51.1 %) 5.3 L Monocytes % (1.7 - 9.3 %) 2.3 Eosinophils % (0 - 5 %) 0 Basophils % (0.0 - 2.0 %) 0.1 Absolute Granulocytes (1.4 - 6.5 /CUMM) 11.4 H Absolute Lymphocytes (1.2 - 3.4 /CUMM) 0.7 L Absolute Monocytes (0.10 - 0.60 /CUMM) 0.3 Absolute Eosinophils (0.0 - 0.7 /CUMM) 0 Absolute Basophils (0.0 - 0.2 /CUMM) 0 08/27 08/27 0648 0208 Chemistry Sodium (137 - 145 mmol/L) 140 Potassium (3.5 - 5.1 mmol/L) 3.6 Chloride (98 - 107 mmol/L) 101 Carbon Dioxide (22 - 30 mmol/L) 33 H Anion Gap (5 - 16) 6 BUN (9 - 20 mg/dL) 13 Creatinine (0.7 - 1.2 mg/dL) 0.6 L Estimated GFR (>60 ml/min) > 60 BUN/Creatinine Ratio (7 - 25 %) 21.7 Total Bilirubin (0.2 - 1.3 mg/dL) 1.1 Direct Bilirubin (< 0.4 mg/dL) 0.4 AST (17 - 59 U/L) 32 ALT (21 - 72 U/L) 186 H Alkaline Phosphatase (< 127 U/L) 75 Troponin I (<0.11 ng/ml) 0.06 Total Protein (6.3 - 8.2 g/dL) 5.6 L Albumin (3.5 - 5.0 g/dL) 2.9 L Coagulation PT (9.4 - 12.5 SEC) 14.0 H INR (0.90 - 1.17) 1.34 H APTT (25 - 37 SEC) 31 Hematology CBC w Diff MAN DIFF ORDERED WBC (4.8 - 10.8 /CUMM) 7.0 RBC (4.70 - 6.10 /CUMM) 4.93 Hgb (14.0 - 18.0 G/DL) 14.5 Hct (42 - 52 %) 45.4 MCV (80.0 - 94.0 FL) 92.1 MCH (27.0 - 31.0 PG) 29.4 MCHC (33.0 - 37.0 G/DL) 32.0 L RDW (11.5 - 14.5 %) 16.6 H Plt Count (130 - 400 /CUMM) 81 L MPV (7.4 - 10.4 FL) 9.8 Gran % (42.2 - 75.2 %) 92.1 H Lymphocytes % (20.5 - 51.1 %) 6.7 L Monocytes % (1.7 - 9.3 %) 1.2 L Eosinophils % (0 - 5 %) 0 Basophils % (0.0 - 2.0 %) 0 Absolute Granulocytes (1.4 - 6.5 /CUMM) 6.4 Segmented Neutrophils (42.2 - 75.2 %) 89 H Band Neutrophils (0.0 - 5.0 %) 1 Absolute Lymphocytes (1.2 - 3.4 /CUMM) 0.5 L Lymphocytes (20.5 - 51.1 %) 9 L Monocytes (1.7 - 9.3 %) 1 L Absolute Monocytes (0.10 - 0.60 /CUMM) 0.1 Absolute Eosinophils (0.0 - 0.7 /CUMM) 0 Absolute Basophils (0.0 - 0.2 /CUMM) 0 Platelet Estimate (ADEQUATE) Anisocytosis 1+ Toxicology Urine Opiates Screen (>2000 NG/ML) 1078.00 Methadone Screen (>300 NG/ML) < 40 Barbiturate Screen (>200 NG/ML) < 60 Ur Phencyclidine Scrn (>25 NG/ML) < 6.00 Amphetamines Screen (>1000 NG/ML) < 100 U Benzodiazepines Scrn (>200 NG/ML) > 800 H Urine Cocaine Screen (>300 NG/ML) < 50 Urine Cannabis Screen (>50 NG/ML) < 5.00 Urines Urine Color (YEL,AMB,STR) YEL Urine Clarity (CLEAR) CLEAR Urine pH (5.0 - 8.0) 7.0 Ur Specific [place] (1.001 - 1.035) 1.010 Urine Protein (NEG,<30 MG/DL) NEG Urine Ketones (NEG) NEG Urine Nitrite (NEG) NEG Urine Bilirubin (NEG) NEG Urine Urobilinogen (0.1 - 1.0 EU/dl) 1.0 Ur Leukocyte Esterase (NEG) NEG Ur Microscopic EXAM NOT REQUIRED Urine Hemoglobin (NEG) NEG Urine Glucose (N MG/DL) NEG 08/27 08/26 0123 1925 Chemistry Sodium (137 - 145 mmol/L) 137 Potassium (3.5 - 5.1 mmol/L) 4.1 Chloride (98 - 107 mmol/L) 95 L Carbon Dioxide (22 - 30 mmol/L) 35 H Anion Gap (5 - 16) 7 BUN (9 - 20 mg/dL) 11 Creatinine (0.7 - 1.2 mg/dL) 0.7 Estimated GFR (>60 ml/min) > 60 BUN/Creatinine Ratio (7 - 25 %) 15.7 Glucose (65 - 99 mg/dL) 82 Hemoglobin A1c (4.2 - 5.8 %) 6.1 H Calcium (8.4 - 10.2 mg/dL) 7.8 L Total Bilirubin (0.2 - 1.3 mg/dL) 1.1 AST (17 - 59 U/L) 28 ALT (21 - 72 U/L) 223 H Alkaline Phosphatase (< 127 U/L) 69 Troponin I (<0.11 ng/ml) 0.07 0.06 Wnt-O-Tkidlvbivpm Pept (<125 pg/mL) 2670 H Total Protein (6.3 - 8.2 g/dL) 5.7 L Albumin (3.5 - 5.0 g/dL) 3.1 L Globulin (1.9 - 4.2 gm/dL) 2.6 Albumin/Globulin Ratio (1.1 - 2.2 %) 1.2 Triglycerides (<150 mg/dL) 55 Cholesterol (< 200 MG/DL) 80 LDL Cholesterol, Calc (65 - 129 mg/dL) 34 L HDL Cholesterol (40 - 60 mg/dL) 35 L Cholesterol/HDL Ratio (0.00 - 4.88 %) 2 TSH (0.270 - 4.200 uIU/mL) 1.400 Free T4 (0.78 - 2.44 ng/dL) 1.09 Coagulation D-Dimer High Sensitivty (0 - 243 ng/ml) 608 H Hematology CBC w Diff NO MAN DIFF REQ WBC (4.8 - 10.8 /CUMM) 9.3 RBC (4.70 - 6.10 /CUMM) 4.61 L Hgb (14.0 - 18.0 G/DL) 13.5 L Hct (42 - 52 %) 42.5 MCV (80.0 - 94.0 FL) 92.3 MCH (27.0 - 31.0 PG) 29.2 MCHC (33.0 - 37.0 G/DL) 31.6 L RDW (11.5 - 14.5 %) 17.0 H Plt Count (130 - 400 /CUMM) 84 L MPV (7.4 - 10.4 FL) 9.1 Gran % (42.2 - 75.2 %) 78.7 H Lymphocytes % (20.5 - 51.1 %) 14.9 L Monocytes % (1.7 - 9.3 %) 5.9 Eosinophils % (0 - 5 %) 0.3 Basophils % (0.0 - 2.0 %) 0.2 Absolute Granulocytes (1.4 - 6.5 /CUMM) 7.3 H Absolute Lymphocytes (1.2 - 3.4 /CUMM) 1.4 Absolute Monocytes (0.10 - 0.60 /CUMM) 0.6 Absolute Eosinophils (0.0 - 0.7 /CUMM) 0 Absolute Basophils (0.0 - 0.2 /CUMM) 0 2014: ZARI, rheumatoid factor-negative, serum protein electrophoresis-normal Careful review of the [facility] records, patient has never been thrombocytopenic before Imaging/Other Studies: [id number] pulmonary emboli, COPD, scarring CT-head-no IV contrast-negative Assessment/Plan Assessment: Thrombocytopenia-now spontaneously improving. Gabapentin has really been associated with thrombocytopenia.? Patient ingested other medication. Given improvement- Recommend- Follow CBC Recommendations: .. Consult Acknowledgment - Thank you for your consult request.
--- NOTE | 2017-08-28 07:41 | PN- Housestaff ---
Kiko JULIO,[facility] 08/28/17 0741: Subjective Follow-up For: COPD Exacerbation CHF ??? Tele-Events Since Last Visit: Sinus rhythm to sinus tachycardia Heart rate 80-104 Subjective: Patient denies any chest pain, palpitations, shortness of breath, leg swelling or fever/chills. Ports improvement in cough and sputum production. Review of Systems Constitutional: Reports: no symptoms. EENTM: Reports: no symptoms. Cardiovascular: Reports: no symptoms. Respiratory: Reports: cough, sputum production. Gastrointestinal: Reports: no symptoms. Genitourinary: Reports: no symptoms. Musculoskeletal: Reports: no symptoms. Skin: Reports: no symptoms. Neurological/Psychological: Reports: no symptoms. Hematologic/Endocrine: Reports: no symptoms. Immunologic/Allergic: Reports: no symptoms. Objective Last 24 Hrs of Vital Signs/I&O Vital Signs Date Time Temp Pulse Resp B/P B/P Pulse O2 O2 Flow FiO2 Mean Ox Delivery Rate 08/28 0937 126/68 08/28 0856 94 Room Air 08/28 0643 98.1 92 20 140/82 92 Room Air 08/28 0000 91 Nasal 2.5L Cannula 08/27 2212 98.0 84 18 124/70 94 08/27 2150 Nasal 2.0L Cannula 08/27 1804 98.0 78 20 136/70 91 08/27 1531 97.5 84 18 124/81 93 Room Air Room Air Intake & Output 08/28 1600 08/28 0800 08/28 0000 Intake Total 110 320 Output Total 900 600 Balance -790 -280 Intake, IV 10 Intake, Oral 100 320 Output, Urine 900 600 Patient 134 lb 133 lb Weight Weight Bed scale Bed scale Measurement Method Physical Exam General Appearance: Alert, Oriented X3, Cooperative, No Acute Distress Skin: No Rashes, No Breakdown Cardiovascular: Regular Rate, Normal S1, Normal S2 Lungs: Clear to Auscultation Abdomen: Normal Bowel Sounds, Soft, No Tenderness Extremities: No Clubbing, No Cyanosis, No Edema, Normal Pulses Current Medications: Current Medications Sig/Cristina Start time Last Medication Dose Route Stop Time Status Admin Albuterol Sulfate 3 ML BID 08/27 2200 AC 08/28 INH 0851 Alprazolam 0 .STK-MED ONE 08/27 1532 DC PO Alprazolam 0.5 MG DAILY PRN 08/27 1445 AC 08/27 PO 09/03 1444 2241 Azithromycin 500 MG DAILY 08/28 1000 AC 08/28 PO 0937 Azithromycin 500 MG DAILY 08/27 1000 DC 08/27 Dextrose/Water 250 ML IV 0949 Furosemide 0 .STK-MED ONE 08/27 1459 DC IV Furosemide 20 MG ONCE ONE 08/27 1445 DC 08/27 IV 08/27 1446 1458 Guaifenesin 600 MG Q12 PRN 08/27 0330 AC PO Influenza Virus 0.5 ML ONCE ONE 08/27 1845 DC Vaccine IM 08/27 1846 Methylprednisolone 40 MG Q12 08/28 1000 AC 08/28 IV 0937 Methylprednisolone 40 MG Q8 08/27 0600 DC 08/27 IV 2131 Multivitamins 1 TAB DAILY 08/27 1000 AC 08/28 PO 0937 Oxycodone HCl 60 MG Q12 08/27 1000 AC 08/28 PO 0936 Oxycodone HCl 30 MG TIDPRN PRN 08/27 0330 AC PO Potassium Chloride 40 MEQ ONCE ONE 08/28 1315 DC PO 08/28 1316 Potassium Chloride 20 MEQ ONCE ONE 08/28 0800 DC 08/28 PO 08/28 0801 0938 Potassium Chloride 10 MEQ ONCE ONE 08/28 0330 CAN IV 08/28 0331 Potassium Chloride 40 MEQ ONCE ONE 08/28 0330 DC 08/28 PO 08/28 0331 0356 Sertraline HCl 100 MG DAILY 08/27 1000 AC 08/28 PO 0937 Tamsulosin HCl 0.4 MG DAILY 08/27 1000 AC 08/28 PO 0937 Tiotropium [place] 1 PUF DAILY 08/27 1000 DC 08/27 INH 0949 Trazodone HCl 50 MG QPM PRN 08/27 0215 AC 08/28 PO 0412 Last 24 Hrs of Lab/Ryan Results Last 24 Hrs of Labs/Mics: Laboratory Tests 08/28/17 0600: Sodium Cancelled, Potassium Cancelled, Chloride Cancelled, Carbon Dioxide Cancelled, Anion Gap Cancelled, BUN Cancelled, Creatinine Cancelled, BUN/ Creatinine Ratio Cancelled 08/28/17 0407: Anion Gap 7, Estimated GFR > 60, BUN/Creatinine Ratio 33.3 H, CBC w Diff NO MAN DIFF REQ, RBC 4.74, MCV 89.7, MCH 29.2, MCHC 32.5 L, RDW 16.5 H, MPV 9.3, Gran % 92.3 H, Lymphocytes % 5.3 L, Monocytes % 2.3, Eosinophils % 0, Basophils % 0.1, Absolute Granulocytes 11.4 H, Absolute Lymphocytes 0.7 L, Absolute Monocytes 0.3, Absolute Eosinophils 0, Absolute Basophils 0 08/27/170: Anion Gap 6, Estimated GFR > 60, BUN/Creatinine Ratio 26.3 H Microbiology 08/27 1643 NASOPHARYN: Influenza Virus A & B Rapid Smear - COMP Assessment/Plan Assessment: Mr Shen is a 62 year old gentleman with a PMH of COPD (not on home O2), BPH, Depression, chronic back painwho was brought in by daughter after it appears the patient has clinically deteriorated over the last 72 hours. A/P; SOB likely multifactorial from CHF and COPD exacerbation. #COPD exacerbation. Continue steroids IV 40 mg every 12. TRC nebulizer. Holding Spiriva per Dannie Duron MD . Incentive spirometer. Mucinex and Tessalon Perles as needed. Continue Azithromyin. Will repeat potassium to keep level above 4. #CHF ?? Elevated BNP with lower ext edema. Patient did not receive any IV Lasix today. Monitor daily weights. Strick intake and output. Echocardiogram pending. Aprreciate Cardiology recommendations. #History of nicotine dependence. Provide Smoking cessation counseling. Nicotine patch. Will need age-appropriate cancer screening as an outpatient. #Idiopathic thrombocytopenia. Coags WNL. Hold pharmacologic anticoagulation for now. Holding gabapentin per Haem/Onc consult as it could be the potential cause of his thrombocytopenia. CBCs this a.m. shows improvement in platelet count. History of depression and mood disorders. Continue home medications. According to the patient he takes Xanax 2 mg twice a day, will call his pharmacy and confirm the dose. #History of chronic pain Continue home medications. PT and OT consultation, recommends discharging home. DVT prophylaxis with ALPS (due to thrombocytopenia) . Patient is a full code. Problem List: 1. Thrombocytopenia 2. COPD exacerbation Pain Ratin Pain Location: BAck Pain Goal: Remain pain free Pain Plan: Pain pathway Tomorrow's Labs & Rationales: BEP(hypokalemia, on Lasix) Niharika Donahue MD 08/28/17 1152: Attending MD Review Statement Attending Statement Attending MD Statement: examined this patient, discuss w/resident/PA/REPERTOIRE MANAGER, agreed w/resident/PA/REPERTOIRE MANAGER, reviewed EMR data (avail), discussed with nursing, discussed with case mgmt, reviewed images Attending Assessment/Plan: Appreciate cardiology and pulmonary eval. Advanced COPD and patient was still smoking is here with acute COPD exacerbation, with likely component of either diastolic or right-sided heart failure. Echo pending and we are using Lasix as needed. We have him on IV steroids and TRC with nebs. Head CT done for fall with head strike was negative. PT is going to work with him today. No gabapentin as that has been implicated as the possible cause of his thrombocytopenia. And will follow closely.
--- NOTE | 2017-08-28 14:15 | PN- Student ---
Subjective Subjective: Patient seen and examined. No overnight telemetry events. He thinks he is doing better. He reports less of a cough and less shortness of breath. He also thinks his leg swelling has disappeared.He denies any palpitations, dizziness, chest pain, or nausea. Objective Objective: Vital Signs Date Time Temp Pulse Resp B/P B/P Pulse O2 O2 Flow FiO2 Mean Ox Delivery Rate 08/28 0937 126/68 08/28 0856 94 Room Air 08/28 0643 98.1 92 20 140/82 92 Room Air Physical Exam: General: alert and oriented x3, cooperative Lungs: clear to auscultation, no wheezes or crackles appreciated Cardiac: normal S1 and S2, no murmurs, rubs or gallops, regular rate and rhythm, no JVP Abdomen: soft and non-distended, no hepatomegaly, normal bowel sounds, no rebound or guarding Extremities: very minimal lower extremity edema, no petechiae, no clubbing or cyanosis noted Results Results: Laboratory Tests 08/28/17 0600: Sodium Cancelled, Potassium Cancelled, Chloride Cancelled, Carbon Dioxide Cancelled, Anion Gap Cancelled, BUN Cancelled, Creatinine Cancelled, BUN/ Creatinine Ratio Cancelled 08/28/17 0407: Anion Gap 7, Estimated GFR > 60, BUN/Creatinine Ratio 33.3 H, CBC w Diff NO MAN DIFF REQ, RBC 4.74, MCV 89.7, MCH 29.2, MCHC 32.5 L, RDW 16.5 H, MPV 9.3, Gran % 92.3 H, Lymphocytes % 5.3 L, Monocytes % 2.3, Eosinophils % 0, Basophils % 0.1, Absolute Granulocytes 11.4 H, Absolute Lymphocytes 0.7 L, Absolute Monocytes 0.3, Absolute Eosinophils 0, Absolute Basophils 0 08/27/17 2120: Anion Gap 6, Estimated GFR > 60, BUN/Creatinine Ratio 26.3 H 08/27/17 0648: Anion Gap 6, Estimated GFR > 60, BUN/Creatinine Ratio 21.7, Total Bilirubin 1.1, Direct Bilirubin 0.4, AST 32, ALT 186 H, Alkaline Phosphatase 75, Troponin I 0.06, Total Protein 5.6 L, Albumin 2.9 L, PT 14.0 H, INR 1.34 H, APTT 31, CBC w Diff MAN DIFF ORDERED, RBC 4.93, MCV 92.1, MCH 29.4, MCHC 32.0 L, RDW 16.6 H, MPV 9.8, Gran % 92.1 H, Lymphocytes % 6.7 L, Monocytes % 1.2 L, Eosinophils % 0, Basophils % 0, Absolute Granulocytes 6.4, Segmented Neutrophils 89 H, Band Neutrophils 1, Absolute Lymphocytes 0.5 L, Lymphocytes 9 L, Monocytes 1 L, Absolute Monocytes 0.1, Absolute Eosinophils 0, Absolute Basophils 0, Platelet Estimate , Anisocytosis 1+ 08/27/17 0208: Urine Opiates Screen 1078.00, Methadone Screen < 40, Barbiturate Screen < 60, Ur Phencyclidine Scrn < 6.00, Amphetamines Screen < 100, U Benzodiazepines Scrn > 800 H, Urine Cocaine Screen < 50, Urine Cannabis Screen < 5.00, Urine Color YEL , Urine Clarity CLEAR, Urine pH 7.0, Ur Specific [place] 1.010, Urine Protein NEG, Urine Ketones NEG, Urine Nitrite NEG, Urine Bilirubin NEG, Urine Urobilinogen 1.0, Ur Leukocyte Esterase NEG, Ur Microscopic EXAM NOT REQUIRED, Urine Hemoglobin NEG, Urine Glucose NEG 08/27/17 0123: Troponin I 0.07 08/26/17 1925: Anion Gap 7, Estimated GFR > 60, BUN/Creatinine Ratio 15.7, Glucose 82, Hemoglobin A1c 6.1 H, Calcium 7.8 L, Total Bilirubin 1.1, AST 28, ALT 223 H, Alkaline Phosphatase 69, Troponin I 0.06, Fsx-[id number]-Xfdyelomjcq Pept 2670 H, Total Protein 5.7 L, Albumin 3.1 L, Globulin 2.6, Albumin/Globulin Ratio 1.2, Triglycerides 55, Cholesterol 80, LDL Cholesterol, Calc 34 L, HDL Cholesterol 35 L, Cholesterol/HDL Ratio 2, TSH 1.400, Free T4 1.09, D-Dimer High Sensitivty 608 H, CBC w Diff NO MAN DIFF REQ, RBC 4.61 L, MCV 92.3, MCH 29.2, MCHC 31.6 L, RDW 17.0 H, MPV 9.1, Gran % 78.7 H, Lymphocytes % 14.9 L, Monocytes % 5.9, Eosinophils % 0.3, Basophils % 0.2, Absolute Granulocytes 7.3 H, Absolute Lymphocytes 1.4, Absolute Monocytes 0.6, Absolute Eosinophils 0, Absolute Basophils 0 Microbiology 08/27 1643 NASOPHARYN: Influenza Virus A & B Rapid Smear - COMP 08/27 0815 LOWER RESP: Respiratory Culture - CAN Cancelled: SPECIMEN NOT RECEIVED IN LABORATORY 08/27 814 LOWER RESP: Gram Stain - CAN Cancelled: SPECIMEN NOT RECEIVED IN LABORATORY Current Medications Sig/Critsina Start time Last Medication Dose Route Stop Time Status Admin Albuterol Sulfate 3 ML BID 08/27 2200 AC 08/28 INH 0851 Alprazolam 0 .STK-MED ONE 08/27 1532 DC PO Alprazolam 0.5 MG DAILY PRN 08/27 1445 AC 08/27 PO 09/03 1444 2241 Azithromycin 500 MG DAILY 08/28 1000 AC 08/28 PO 0937 Azithromycin 500 MG DAILY 08/27 1000 DC 08/27 Dextrose/Water 250 ML IV 0949 Furosemide 0 .STK-MED ONE 08/27 1459 DC IV Furosemide 20 MG ONCE ONE 08/27 1445 DC 08/27 IV 08/27 1446 1458 Guaifenesin 600 MG Q12 PRN 08/27 0330 AC PO Influenza Virus 0.5 ML ONCE ONE 08/27 1845 DC Vaccine IM 08/27 1846 Methylprednisolone 40 MG Q12 08/28 1000 AC 08/28 IV 0937 Methylprednisolone 40 MG Q8 08/27 0600 DC 08/27 IV 2131 Multivitamins 1 TAB DAILY 08/27 1000 AC 08/28 PO 0937 Oxycodone HCl 60 MG Q12 08/27 1000 AC 08/28 PO 0936 Oxycodone HCl 30 MG TIDPRN PRN 08/27 0330 AC PO Potassium Chloride 40 MEQ ONCE ONE 08/28 1315 DC PO 08/28 1316 Potassium Chloride 20 MEQ ONCE ONE 08/28 0800 DC 08/28 PO 08/28 0801 0938 Potassium Chloride 10 MEQ ONCE ONE 08/28 0330 CAN IV 08/28 0331 Potassium Chloride 40 MEQ ONCE ONE 08/28 0330 DC 08/28 PO 08/28 0331 0356 Sertraline HCl 100 MG DAILY 08/27 1000 AC 08/28 PO 0937 Tamsulosin HCl 0.4 MG DAILY 08/27 1000 AC 08/28 PO 0937 Tiotropium [place] 1 PUF DAILY 08/27 1000 DC 08/27 INH 0949 Trazodone HCl 50 MG QPM PRN 08/27 0215 AC 08/28 PO 0412 Assessment/Plan Assessment: This is a 62 year old white male current 30 pack year smoker with a past medical history of COPD without home oxygen, BPH, depression, chronic back pain, and narcotic abuse presenting with lower extremity edema, worsening dyspnea on exertion and paroxysmal nocturnal dyspnea, and somnolence for 2 days after taking extra gabapentin. His chest x-ray shows hyperinflation and scarring. His CTA showed no PE, increased right heart pressure, possible pulmonary hypertension, and emphysema. His EKG shows 1st degree AV block and 2nd degree Mobitz type I AV block. His labs were notable initially for platelets of 80, elevated ALT, BNP of 2670, and D-Dimer of 608. The platelets have since increased to 101. This is likely to be a multifactorial episode due to COPD exacerbation and CHF. The thrombocytopenia will be evaluated. Plan: COPD Exacerbation -IV steroids 40 mg q12 -TRC nebulizers -Hold Spiriva -Azithromycin 500 mg daily -Recommended to keep potassium above 4, will follow and give potassium as needed -Follow pulmonology recommendations CHF exacerbation -Received 40 mg Lasix in ED, has been diuresing well, has not received Lasix today -Monitor daily weights, weight has remained stable -Will get an ECHO done -Follow cardiology recommendations Thrombocytopenia -Follow haem/onc recommendations -Hold gabapentin as this may be cause -Follow CBCs, today shows increase in platelet count to 101 -Blood smear was normal -No anticoagulation for now History of depression and chronic back pain -Continue home medications -PT and OT evaluation Nicotine Dependence -Given nicotine patch -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
[2017-08-28 14:25] VITALS: BP 138/90
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
[2017-08-28 22:21] VITALS: BP 142/90
[2017-08-29 07:12] VITALS: BP 152/88
--- NOTE | 2017-08-29 07:17 | PN- Housestaff ---
See Addendum Kiko JULIO,Samara 08/29/17 0717: Subjective Follow-up For: COPD exacerbation Stage I diastolic dysfunction Tele-Events Since Last Visit: NSR Heart rate 60-88 Subjective: Patient denies any active complaints. Reports resolution of lower extremity edema and has improvement in shortness of breath. Review of Systems Constitutional: Reports: no symptoms. EENTM: Reports: no symptoms. Cardiovascular: Reports: no symptoms. Respiratory: Reports: cough, short of breath. Gastrointestinal: Reports: no symptoms. Genitourinary: Reports: no symptoms. Musculoskeletal: Reports: no symptoms. Skin: Reports: no symptoms. Neurological/Psychological: Reports: no symptoms. Hematologic/Endocrine: Reports: no symptoms. Immunologic/Allergic: Reports: no symptoms. Objective Last 24 Hrs of Vital Signs/I&O Vital Signs Date Time Temp Pulse Resp B/P B/P Pulse O2 O2 Flow FiO2 Mean Ox Delivery Rate 08/29 1015 93 Room Air Room Air 08/29 0806 152/88 08/29 0712 97.3 62 18 152/88 95 Room Air 08/28 2221 98.1 82 18 142/90 95 08/28 1835 94 Room Air 08/28 1600 Room Air Intake & Output 08/29 1600 08/29 0800 08/29 0000 Intake Total 110 350 Output Total Balance 110 350 Intake, IV 10 Intake, Oral 100 350 Number 0 Bowel Movements Patient 128 lb 134 lb Weight Weight Bed scale Measurement Method Physical Exam General Appearance: Alert, Oriented X3, Cooperative, No Acute Distress Skin: No Rashes, No Breakdown Cardiovascular: Regular Rate, Normal S1, Normal S2 Lungs: decreased breath sounds Abdomen: Normal Bowel Sounds, Soft, No Tenderness Extremities: No Clubbing, No Cyanosis, No Edema, Normal Pulses Current Medications: Current Medications Sig/Cristina Start time Last Medication Dose Route Stop Time Status Admin Albuterol Sulfate 3 ML BID 08/27 2200 DCD 08/29 INH 1012 Alprazolam 1 MG BID 08/28 220 DC PO 09/04 2159 Alprazolam 1 MG Q6 08/28 1800 DCD 08/29 PO 09/04 1553 0556 Alprazolam 0.5 MG ONCE ONE 08/28 1430 DC 08/28 PO 08/28 1431 1515 Artificial Tears 2 GTT TID 08/28 2200 DCD 02/15 OPH 0807 Azithromycin 500 MG DAILY 08/28 1000 DCD 08/29 PO 0806 Guaifenesin 600 MG Q12 PRN 08/27 0330 DCD PO Methylprednisolone 40 MG Q12 08/28 1000 DC 08/28 IV 2156 Multivitamins 1 TAB DAILY 08/27 1000 DCD 08/29 PO 0806 Oxycodone HCl 60 MG Q12 08/27 1000 DCD 08/29 PO 0806 Oxycodone HCl 30 MG TIDPRN PRN 08/27 0330 DCD PO Patient Medication 1 ED ONE ONE 08/29 1145 DC Teaching ED 08/29 1146 Prednisone 40 MG DAILY 08/29 1000 DCD 08/29 PO 0807 Sertraline HCl 100 MG DAILY 08/27 1000 DCD 08/29 PO 0806 Tamsulosin HCl 0.4 MG DAILY 08/27 1000 DCD 08/29 PO 0806 Trazodone HCl 50 MG QPM PRN 08/27 0215 DCD 08/29 PO 0031 Last 24 Hrs of Lab/Ryan Results Last 24 Hrs of Labs/Mics: Laboratory Tests 08/29/17 0626: Anion Gap 9, Estimated GFR > 60, BUN/Creatinine Ratio 26.7 H Assessment/Plan Assessment: Mr Shen is a 62 year old gentleman with a PMH of COPD (not on home O2), BPH, Depression, chronic back painwho was brought in by daughter after it appears the patient has clinically deteriorated over the last 72 hours. A/P; SOB likely multifactorial from CHF and COPD exacerbation. #COPD exacerbation. Patient started on by mouth prednisone and will be sent home on prednisone taper. TRC nebulizer. Continue to hold Spiriva. Incentive spirometer. Mucinex and Tessalon Perles as needed. Continue Azithromyin. Will repeat potassium to keep level above 4. Smoking cessation counseling done. #CHF due to diastolic dysfunction; - Echocardiogram showed stage I diastolic dysfunction and an ejection fraction of greater than 60% without any regional wall motion abnormalities and with clinical presensation ( SOB and lower extremity edema) suggestive of both right and left side heart involvement. - No further lasix needed. - Monitor daily weights. - Strick intake and output. #History of nicotine dependence. Smoking cessation counseling. Nicotine patch. Will need age-appropriate cancer screening as an outpatient. #Idiopathic thrombocytopenia. Coags WNL. Hold pharmacologic anticoagulation for now. Holding gabapentin per Haem/Onc consult as it could be the potential cause of his thrombocytopenia. History of depression and mood disorders. Continue home medications. Medications confirmed with pharmacy. #History of chronic pain Continue home medications. PT and OT consultation, recommends discharging home. DVT prophylaxis with ALPS (due to thrombocytopenia) . Patient is a full code. Problem List: 1. CHF (congestive heart failure) 2. COPD exacerbation Pain Ratin Pain Location: Back Pain Goal: Remain pain free Pain Plan: Pain Pathway Tomorrow's Labs & Rationales: None Niharika Donahue MD 08/29/17 1024: Attending MD Review Statement Attending Statement Attending MD Statement: examined this patient, discuss w/resident/PA/ALTERATION WORKER, agreed w/resident/PA/ALTERATION WORKER, discussed with family, reviewed EMR data (avail), discussed with nursing, discussed with case mgmt, reviewed images Attending Assessment/Plan: Patient was cleared by PT for home self care. We've had multiple conversations with the patient's daughter and patient's . It's clear that the patient is using more Xanax than he was prescribed. The PCP had prescribed 2 mg once a day and the daughter thought he was taking 2 mg 4 times a day and the patient says he's been taking 2 mg twice a day. Nonetheless we spoke to him at length about the dangers of benzo overuse, and also counseled him at length about tobacco cessation. His white count is elevated but I think that reflects the steroids as he is clinically okay with no focus of infection. He is eager to go home. His daughter understands the need for close outpatient follow-up including with PCP and with Dr. Duron the musical instruments assembler. I called Dr. Felix who reviewed the echo results and his LV function is okay he does have a dilated RV and mildly elevated RV pressures that we are blaming on his COPD. Dr. Felix will follow him as an outpatient and decide whether he needs diuretics for right heart failure in the long-term. For now he is stable to go on a prednisone taper, we are giving him a short supply of the Xanax and the daughter knows this as he says he's run out of it at home and we have called the PCP Gardenia Freed the PSYCHODRAMATIST to alert her of the same.
[2017-08-29 08:06] VITALS: BP 152/88
[2017-08-29] MEDS ORDERED: PREDNISONE10 M2 PO ×2 (08:23→11:27)
--- NOTE | 2017-08-29 08:31 | Patient Discharge Instructions ---
Discharge Instructions General Discharge Information You were seen/treated for: COPD Exacerbation Watch for these problems: Please return to the ER in case of any worsening SOB, Chest Pain, Palpitations or leg swelling. Special Instructions: Please follow up with your PCP within a week after discharge. Please follow up with your Dramatic Teacher within 1-2 weeks after discharge. Please follow up with your Proof Load Mechanic within 1-2 weeks after discharge. Please do not take Gabapentin in the future as it lowers your Platelet Count. Diet Continue normal diet: Yes Recommended Diet: Heart Healthy Activity Full Activity/No Limits: Yes Activity Self Limited: Yes (As tolerated) Acute Coronary Syndrome Inclusion Criteria At DC or during hospital stay patient has or had the following: ACS DIAGNOSIS No Discharge Core Measures Meds if any: Prescribed or Continued at Discharge Meds if any: NOT Prescribed or Continued at Discharge Congestive Heart Failure Inclusion Criteria At DC or during hospital stay patient has or had the following: CHF DIAGNOSIS No Discharge Core Measures Meds if any: Prescribed or Continued at Discharge Meds if any: NOT Prescribed or Continued at Discharge Cerebrovascular accident Inclusion Criteria At DC or during hospital stay patient has or had the following: CVA/TIA Diagnosis No Discharge Core Measures Meds if any: Prescribed or Continued at Discharge Meds if any: NOT Prescribed or Continued at Discharge Venous thromboembolism Inclusion Criteria VTE Diagnosis No VTE Type NONE VTE Confirmed by (Test) NONE Discharge Core Measures - Per Current guidelines, there needs to be overlap - treatment for the first 5 days of Warfarin therapy. - If discharged on Warfarin prior to 5 days of - overlap therapy, the patient will need to be - assessed for post discharge needs including - *Post discharge parental anticoagulation - *Warfarin and/or parental anticoagulation education - *Follow up date to check INR post discharge At least 5 days overlap therapy as Inpatient No Meds if any: Prescribed or Continued at Discharge Note: Overlap Therapy is Warfarin and Anticoagulant Meds if any: NOT Prescribed or Continued at Discharge
[2017-08-29] MEDS ORDERED: XANAX2 M1 PO (09:17)
--- NOTE | 2017-08-29 10:15 | ECHOCARDIOGRAM REPORT ---
SISSY PERALES Age: 62 : 1955 Gender: M Exam Date: 08/28/2017 18:46 Exam Location: 1 [address] Ht (in): 70 Wt (lb): 133 BSA: 1.72 BP: 126 / 68 Ordering Physician: Eileen Pena MD Referring Physician: Rafael Felix MD Technologist: Malinda Coyle [facility] Room Number: 178-01 Indications: HEART FAILURE Rhythm: Sinus Technical Quality: Fair FINDINGS Left Ventricle Normal size left ventricle. Mild concentric left ventricular hypertrophy. No obvious regional wall motion abnormalities. Normal left ventricular ejection fraction visually estimated at >60%. Abnormal relaxation filling pattern of the left ventricle for age (stage 1 diastolic dysfunction). Right Ventricle Moderate right ventricular dilatation. Right Atrium Moderate right atrial dilatation. Left Atrium Normal left atrial size. Mitral Valve Mildly calcified mitral valve annulus. Mitral valve moderately thickened. Mild mitral regurgitation. Criteria for mitral valve prolapse not present. Aortic Valve Mild aortic sclerosis. No aortic valve stenosis or regurgitation. Tricuspid Valve Structurally normal tricuspid valve. Mild tricuspid regurgitation. No evidence of pulmonary hypertension. Right ventricular systolic pressure estimated to be within the normal range at 21 mmHg. Pulmonic Valve Pulmonic valve not well visualized, grossly normal. Trace pulmonic regurgitation. Pericardium No pericardial effusion. Great Vessels Normal size aortic root. Mildly dilated inferior vena cava. CONCLUSIONS Normal size left ventricle. Mild concentric left ventricular hypertrophy. Normal left ventricular ejection fraction visually estimated at > 60%. Abnormal relaxation filling pattern of the left ventricle for age (stage 1 diastolic dysfunction). Moderate right ventricular dilatation. Moderate right atrial dilatation. Normal left atrial size. Mild mitral regurgitation. Mild tricuspid regurgitation. No evidence of pulmonary hypertension. Trace pulmonic regurgitation. Mildly dilated inferior vena cava. Rafael Felix M.D. (Electronically Signed) Final Date: 29 August 2017 10:14 MEASUREMENTS (Male / Female) Normal Values 2D ECHO LV Diastolic Diameter PLAX 4.4 cm 4.2 - 5.9 / 3.9 - 5.3 cm LV Systolic Diameter PLAX 2.6 cm 2.1 - 4.0 cm LV Fractional Shortening PLAX 40.9 % 25 - 46 % LV Ejection Fraction 2D Teich 71.9 % IVS Diastolic Thickness 1.3 cm LVPW Diastolic Thickness 1.3 cm LV Relative Wall Thickness 0.6 RV Internal Dim ED PLAX 4.8 cm 1.9 - 3.8 cm LVOT Diameter 2.1 cm Aortic Root Diameter 2.9 cm LA Systolic Diameter LX 3.3 cm 3.0 - 4.0 / 2.7 - 3.8 cm LA Volume 30.0 cm 18 - 58 / 22 - 52 cm Ascending Aorta Diameter 3.0 cm DOPPLER AV Peak Velocity 132.0 cm/s AV Peak Gradient 7.0 mmHg AV Mean Velocity 98.8 cm/s AV Mean Gradient 4.0 mmHg AV Velocity Time Integral 26.2 cm LVOT Peak Velocity 103.0 cm/s LVOT Peak Gradient 4.2 mmHg LVOT Mean Velocity 72.9 cm/s LVOT Mean Gradient 2.0 mmHg LVOT Velocity Time Integral 20.5 cm LVOT Stroke Volume 71.0 cm AV Area Cont Eq vti 2.7 cm AV Area Cont Eq pk 2.7 cm MV Peak Velocity 86.9 cm/s MV Peak Gradient 3.0 mmHg MV Mean Velocity 53.2 cm/s MV Mean Gradient 1.0 mmHg Mitral E Point Velocity 58.3 cm/s Mitral A Point Velocity 77.5 cm/s Mitral E to A Ratio 0.8 MV PHT Velocity 70.6 cm/s MV Deceleration [place] 288.0 cm/s MV Pressure Half Time 73.5 ms MV Area PHT 3.0 cm MV Deceleration Time 232.0 ms TR Peak Velocity 199.0 cm/s TR Peak Gradient 15.8 mmHg Right Atrial Pressure 5.0 mmHg Pulmonary Artery Systolic Pressu 20.8 mmHg Right Ventricular Systolic Press 20.8 mmHg PV Peak Velocity 112.0 cm/s PV Peak Gradient 5.0 mmHg PV Mean Velocity 78.2 cm/s PV Mean Gradient 3.0 mmHg PV Velocity Time Integral 19.6 cm LV E' Lateral Velocity 11.0 cm/s Mitral E to LV E' Lateral Ratio 5.3 LV E' Septal Velocity 7.6 cm/s Mitral E to LV E' Septal Ratio 7.7
--- NOTE | 2017-08-29 11:07 | Discharge Summary ---
Visit Information Visit Dates Admission Date: 08/26/17 Discharge Date: 08/29/17 Hospital Course Course Attending Physician: Rowan JULIO,Niharika Corado Primary Care Physician: Gardenia Freed APRN Hospital Course: Mr Shen is a 62 year old gentleman with a PMH of COPD (not on home O2), BPH, Depression, chronic back painwho was brought in by daughter after it appears the patient has clinically deteriorated over the last 72 hours. Patient was admitted to the telemetry floor and following issues were addressed; 1. COPD exacerbation 2. Acute Diastolic Right heart failure 3. Idiopathic thrombocytopenia. 4. Fall #COPD exacerbation. Patient was started on started on azithromycin and IV Solu-Medrol later changed to prednisone. Pulmonology consult was obtained. Spiriva was held and albuterol Neb treatment continued. Potassium was repleted to keep level above 4. # Acute Diastolic Right heart failure; Patient presented with SOB and peripheral edema. Echocardiogram showed stage I diastolic dysfunction with right atrial and ventricular dilation and an ejection fraction of greater than 60% without any regional wall motion abnormalities. Heart Failure could have been precipitated by current exacerbation of his end stage COPD. Patient was given 2 doses of IV Lasix on first 2 days of hospitalization only. Follow up as an outpatient with Dr. Felix to further assess the need of continuing Lasix for his heart failure. #History of nicotine dependence. Patient was provided with Nicotine patch. Smoking cessation counseling was done. Will need age-appropriate cancer screening as an outpatient. #Idiopathic thrombocytopenia. Gabapentin was held per Haem/Onc as the potential cause of his thrombocytopenia. Pharmacologic anticoagulation was also held. Peripheral smear was negative and Coags were within normal limits. # [place] CT was obtained which was negative for any acute intracranial pathology. History of depression and mood disorders. Home medications were continued. Patient was given a prescription for Xanax for 5 days (2mg BID) and advised to follow up with his Psychiatrist for further refill of his medications. #History of chronic pain Home medications continued. Patient was discharged home per PT recommendations. Allergies: Coded Allergies: NO KNOWN ALLERGIES (08/13/13) Significant Procedures: XRY-CHEST XRAY, TWO VIEWS IMPRESSION: Lung hyperinflation. Streaky biapical opacification likely sales support representative of scarring, though an underlying infiltrate is difficult to exclude, particularly on the right. Recommendation is for a followup chest series to be obtained following treatment and/or resolution of symptoms to assure resolution of this appearance. CTA CHEST-PULMONARY EMBOLISM IMPRESSION: 1. No pulmonary embolus identified. 2. Findings suggestive of elevated right heart pressures. Prominent main pulmonary artery may reflect pulmonary hypertension. 3. Moderately extensive emphysema with upper lobe predominance. 4. Regions of subpleural opacity at the lung apices, suggestive of scarring. However, in the absence of prior CT exams for comparison, follow-up CT in 3-6 months is advised to exclude superimposed developing mass. VTE: negative CT HEAD WO IV CONTRAST IMPRESSION: No acute intracranial pathology. ECHOCARDIOGRAM CONCLUSIONS Normal size left ventricle. Mild concentric left ventricular hypertrophy. Normal left ventricular ejection fraction visually estimated at > 60%. Abnormal relaxation filling pattern of the left ventricle for age (stage 1 diastolic dysfunction). Moderate right ventricular dilatation. Moderate right atrial dilatation. Normal left atrial size. Mild mitral regurgitation. Mild tricuspid regurgitation. No evidence of pulmonary hypertension. Trace pulmonic regurgitation. Mildly dilated inferior vena cava. Disposition Summary Disposition Principal Diagnosis: COPD exacerbation Additional Diagnosis: Acute Diastolic Right heart failure Discharge Disposition: home or self care Discharge Instructions General Discharge Information Code Status: Full Code Patient's Diet: Heart healthy Patient's Activity: As tolerated Follow-Up Instructions/Appts: Please follow up with your PCP within a week after discharge. Please follow up with your Library Technology Instructor within 1-2 weeks after discharge. Please follow up with your Mesh Worker within 1-2 weeks after discharge. Please do not take Gabapentin in the future as it decreases your Platelet Count. Medications at Discharge Discharge Medications: Continue taking these medications: Trazodone HCl (Trazodone HCl) 50 MG TABLET 1 Tablet ORAL Every night as needed for SLEEP Comments: Last Taken: 08/29/17 Time: 12:30 AM Sertraline HCl (Sertraline HCl) 100 MG TABLET 1 Tablet ORAL DAILY Comments: Last Taken: 08/29/17 Time: 0800 AM Tamsulosin HCl (Flomax) 0.4 MG CAP.ER.24H 1 Capsule ORAL DAILY Comments: Last Taken: 08/29/17 Time: 0800 AM Oxycodone HCl (Oxycontin) 60 MG TAB.ER.12H 1 Tablet ORAL TWICE DAILY Comments: Last Taken: 08/29/17 Time: 0800 AM Oxycodone HCl (Oxycodone HCl) 30 MG TABLET 1 Tablet ORAL THREE TIMES A DAY NEEDED Comments: NOT GIVEN IN HOSPITAL Tiotropium [place] (Spiriva) 18 MCG CAP.W.DEV 1 Capsule Inhale through mouth DAILY Comments: NOT GIVEN IN HOSPITAL Dextroamphetamine/Amphetamine (Dextroamp-Amphet ER 30 MG Cap) 30 MG CAP.ER.24H 1 Capsule ORAL DAILY Comments: NOT GIVEN IN HOSPITAL Start taking the following new medications: Prednisone (Prednisone) 10 MG TABLET 1 Tablet ORAL TWICE DAILY Qty = 26 No Refills Instructions: 08/30 - 08/31 40MG 09/01 - 09/03 30MG 09/04 - 09/06 20MG 09/07 - 09/09 10MG STOP. Comments: Last Taken: 08/29/17 Time: 0800 AM. The following medications have been changed: Old: Alprazolam (Xanax) 2 MG TABLET 1 Tablet ORAL GIVE ONCE New: Alprazolam (Xanax) 2 MG TABLET 1 Tablet ORAL TWICE DAILY Qty = 10 Comments: Last Taken: 08/29/17 Time: 0600 AM Copies To: Domi JULIO,Dannie Lopez; Isidro JULIO,Rafael Lopez; Gardenia Freed APRN
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
[2017-08-30 01:43] LABS: WHITE BLOOD CELL COUNT 12.4 /CUMM (4.8-10.8)
== END 2017-08-29 11:49 | DRG 917 ==
LOC: ERH 17:04 → 1NO 23:16 → ERHI 23:16 → ENRESERV 08-27 14:15 → ENTRNSPT 08-27 17:16 → EDTRNSPT 08-27 17:25 → EDTRNSPTSTS 08-27 17:25 → 1NO 08-27 17:34 → CMPTRNSPT 08-27 18:19 → 1NO 08-27 21:08 → ENPENDDIS 08-29 10:27 → 1NO 08-29 11:49
PROVIDERS: Internal Medicine; Physician Assistant Medical; Student in an Organized Health Care Education/Training Program
DX: T42.6X1A Poisoning by other antiepileptic and sedative-hypnotic drugs, accidental (unintentional), initial encounter (principal); I50.33 Acute on chronic diastolic (congestive) heart failure; D69.3 Immune thrombocytopenic purpura; R64 Cachexia; I27.20 Pulmonary hypertension, unspecified; E83.51 Hypocalcemia; I44.1 Atrioventricular block, second degree; J44.1 Chronic obstructive pulmonary disease with (acute) exacerbation; Z68.1 Body mass index [BMI] 19.9 or less, adult; I11.0 Hypertensive heart disease with heart failure; R60.9 Edema, unspecified; Y92.009 Unspecified place in unspecified non-institutional (private) residence as the place of occurrence of the external cause; R62.7 Adult failure to thrive; R41.82 Altered mental status, unspecified; F17.210 Nicotine dependence, cigarettes, uncomplicated; M81.0 Age-related osteoporosis without current pathological fracture; T42.4X1A Poisoning by benzodiazepines, accidental (unintentional), initial encounter; N40.0 Benign prostatic hyperplasia without lower urinary tract symptoms; G89.29 Other chronic pain; M54.9 Dorsalgia, unspecified; R06.89 Other abnormalities of breathing; Z87.820 Personal history of traumatic brain injury
CPT/HCPCS: 1NP; ERO; 36415; 36592; 71046; 80307; 81003; 82436; 87070; 87804; 87804-59; 93005; 93010; 93306; 97116-GO; 97161-GP; 97530-GO; J0456; J1650; J1940; J2920; J2930; J7060